=== PATIENT | male | born 1950 | race Caucasian/White ===

== ENCOUNTER 2018-06-21 13:19 | Emergency (ER) | payer MEDICARE, OTHER ==
[~2018-06-21] VITALS: Ht 167.6 cm; Wt 80.9 kg
[~2018-06-21 13:19] MED LIST: ACET-48 PO; ASPI-1213 PO; DOCO1CAP PO; DOCU-281 PO; GABA-531 PO; INS7030 SQ; INSU10VI3 SQ; LISI5TAB PO; METF500T7 PO; MULT1TAB70 PO; OMEP20 PO; PRAV40TA4 PO; SIME80 PO; TAMS0.4C32 PO; WARF5 PO
[2018-06-21 13:34] LABS: GLUCOSE,POINT OF CARE 126 MG/DL (70-110)
[2018-06-21 13:59] LABS: GLUCOSE,POINT OF CARE 126 MG/DL (70-110)
[2018-06-21 14:42] LABS: BASOPHILS % (AUTO) 0.5 % (0.0-2.0); EOSINOPHILS % (AUTO) 2.9 % (1.0-6.0); HEMATOCRIT 36.6 % (41-53); HEMOGLOBIN 12.4 g/dL (13.5-17.5); LYMPHOCYTES # (AUTO) 1.9 K/uL (1.0-4.8); LYMPHOCYTES % (AUTO) 29.3 % (22.0-44.0); MEAN CORPUSCULAR HEMOGLOBIN 31.1 pg (26.0-34.0); MEAN CORPUSCULAR HGB CONC 33.9 G/dL (31.0-37.0); MEAN CORPUSCULAR VOLUME 92 fL (80-100); MONOCYTES # (AUTO) 0.5 K/uL (0.1-1.0); NEUTROPHILS % (AUTO) 60.3 % (40.0-70.0); PLATELET COUNT (AUTO) 171 K/uL (150-450); RED BLOOD CELL COUNT(AUTO) 3.99 MIL/uL (4.50-5.90); RED CELL DISTRIBUTION WIDTH 13.9 % (11.5-14.5)
[2018-06-21 14:51] LABS: CALCIUM, TOTAL 9.4 mg/dL (8.8-10.5); CREATININE 1.86 mg/dL (0.60-1.30); POTASSIUM 5.3 mmol/L (3.5-5.1)
[2018-06-21 14:56] LABS: PROTHROMBIN TIME 10.9 SEC (9.4-11.6)
[2018-06-21 14:57] LABS: ALBUMIN 3.6 g/dL (3.4-5.0); BILIRUBIN,TOTAL 0.4 mg/dL (0.1-1.0); TOTAL PROTEIN, SERUM 7.9 g/dL (6.4-8.2)
[2018-06-21] MEDS: SODIUM CHLORIDE 0.9% 1,000 ML IV ONE (15:36)
[2018-06-21] MEDS: ALBUTEROL SULFATE 2.5 MG/0.5 ML NEB SOLUTION NEB ONE (15:41)
[2018-06-21 16:32] VITALS: BP 167/91
== END 2018-06-21 17:02 | disposition home or self-care (01) ==
LOC: EMS 13:20
DX: E87.5 Hyperkalemia (principal); I13.0 Hypertensive heart and chronic kidney disease with heart failure and stage 1 through stage 4 chronic kidney disease, or unspecified chronic kidney disease; E11.22 Type 2 diabetes mellitus with diabetic chronic kidney disease; N18.9 Chronic kidney disease, unspecified; I50.9 Heart failure, unspecified; Z79.4 Long term (current) use of insulin; Z95.0 Presence of cardiac pacemaker; Z95.1 Presence of aortocoronary bypass graft; Z79.82 Long term (current) use of aspirin; Z79.84 Long term (current) use of oral hypoglycemic drugs; Z79.899 Other long term (current) drug therapy
CPT/HCPCS: 93005; 94640; 99285

== ENCOUNTER 2019-10-18 13:42 | Emergency (ER) | payer MEDICARE, MEDICAID ==
[~2019-10-18] VITALS: Ht 162.6 cm; Wt 81.8 kg
[~2019-10-18 13:42] MED LIST changes: -ACET-48 PO; +ACET-49 PO; -ASPI-1213 PO; +ASPI81 PO; -GABA-531 PO; +GABA-533 PO; -LISI5TAB PO; -METF500T7 PO; +METO-558 PO; +TAMS-13 PO; -TAMS0.4C32 PO; +WARF2 PO; -WARF5 PO
[2019-10-18 14:12] LABS: GLUCOSE,POINT OF CARE 301 MG/DL (70-110)
[2019-10-18] MEDS ORDERED: INSU100I26 SQ (14:53)
[2019-10-18] MEDS ORDERED: MULT1TAB70 PO (14:53)
[2019-10-18] MEDS ORDERED: DOCO1CAP6 PO (14:53)
[2019-10-18] MEDS ORDERED: DOCU-275 PO (14:53)
[2019-10-18] MEDS ORDERED: DOXYCYCLINE HYCLATE 100 MG CAPSULE PO ONE (15:00)
[2019-10-18] MEDS ORDERED: PERTUSS(ACELL),DIPH,TET VAC/PF 0.5 ML VIAL IM ONE (15:00)
[2019-10-18] MEDS ORDERED: BACITRACIN 0.9 GM PACKET OINTMENT TP ONE (15:45)
[2019-10-18 15:55] VITALS: BP 113/69
== END 2019-10-18 16:01 | disposition home or self-care (01) ==
LOC: EMS 13:44
DX: T23.201A Burn of second degree of right hand, unspecified site, initial encounter (principal); I11.0 Hypertensive heart disease with heart failure; I50.9 Heart failure, unspecified; E11.9 Type 2 diabetes mellitus without complications; Z79.4 Long term (current) use of insulin; Z79.82 Long term (current) use of aspirin; Z79.01 Long term (current) use of anticoagulants; Z95.0 Presence of cardiac pacemaker; X11.8XXA Contact with other hot tap-water, initial encounter; Y93.89 Activity, other specified; Y92.89 Other specified places as the place of occurrence of the external cause; Y99.8 Other external cause status
CPT/HCPCS: 90471; 90715

== ENCOUNTER 2019-12-13 11:46 | Emergency (ER) | payer MEDICARE, MEDICAID ==
[~2019-12-13] VITALS: Ht 160 cm; Wt 77.3 kg
[~2019-12-13 11:46] MED LIST changes: +ASPI-728 PO; -ASPI81 PO; -DOCO1CAP PO; +DOCO1CAP6 PO; +DOCU-275 PO; -DOCU-281 PO; -INS7030 SQ; +INSU100I26 SQ; -INSU10VI3 SQ
[2019-12-13 12:13] LABS: GLUCOSE,POINT OF CARE 180 MG/DL (70-110)
[2019-12-13] MEDS ORDERED: OXYB5XL PO (12:15)
[2019-12-13] MEDS ORDERED: SITA25 PO (12:15)
[2019-12-13] MEDS ORDERED: WARF2.5 PO (12:15)
[2019-12-13] MEDS ORDERED: FURO20 PO (12:15)
[2019-12-13 12:49] LABS: BASOPHILS % (AUTO) 0.1 % (0.0-2.0); EOSINOPHILS % (AUTO) 0.2 % (1.0-6.0); HEMATOCRIT 40.9 % (41-53); HEMOGLOBIN 13.9 g/dL (13.5-17.5); LYMPHOCYTES # (AUTO) 1.2 K/uL (1.0-4.8); LYMPHOCYTES % (AUTO) 12.3 % (22.0-44.0); MEAN CORPUSCULAR HEMOGLOBIN 29.9 pg (26.0-34.0); MEAN CORPUSCULAR HGB CONC 33.9 G/dL (31.0-37.0); MEAN CORPUSCULAR VOLUME 88 fL (80-100); MONOCYTES # (AUTO) 0.4 K/uL (0.1-1.0); MONOCYTES % (AUTO) 4.1 % (2.0-9.0); NEUTROPHILS # (AUTO) 8.2 K/uL (1.8-7.7); NEUTROPHILS % (AUTO) 83.3 % (40.0-70.0); PLATELET COUNT (AUTO) 163 K/uL (150-450); RED BLOOD CELL COUNT(AUTO) 4.64 MIL/uL (4.50-5.90)
[2019-12-13 12:58] LABS: CALCIUM, TOTAL 9.5 mg/dL (8.8-10.5); CREATININE 1.98 mg/dL (0.60-1.30); POTASSIUM 4.6 mmol/L (3.5-5.1)
[2019-12-13 13:00] LABS: INR 2.9 (0.9-1.1); PROTHROMBIN TIME 29.5 SEC (9.4-11.6)
[2019-12-13 13:04] LABS: ALBUMIN 4.1 g/dL (3.4-5.0); BILIRUBIN,TOTAL 0.7 mg/dL (0.1-1.0); TOTAL PROTEIN, SERUM 8.7 g/dL (6.4-8.2)
[2019-12-13 16:25] VITALS: BP 135/77
== END 2019-12-13 16:29 | disposition home or self-care (01) ==
LOC: EMS 11:51
DX: N40.0 Benign prostatic hyperplasia without lower urinary tract symptoms (principal); I13.10 Hypertensive heart and chronic kidney disease without heart failure, with stage 1 through stage 4 chronic kidney disease, or unspecified chronic kidney disease; E11.22 Type 2 diabetes mellitus with diabetic chronic kidney disease; N18.9 Chronic kidney disease, unspecified; Z95.0 Presence of cardiac pacemaker; Z79.899 Other long term (current) drug therapy; Z79.82 Long term (current) use of aspirin; Z79.01 Long term (current) use of anticoagulants
CPT/HCPCS: 74176; 93005